=== PATIENT | female | born 2005 | race Two or more races ===

== ENCOUNTER 2024-10-20 15:21 | Emergency (ER) | payer SELFPAY ==
--- NOTE | 2024-10-20 16:03 | PC.NURSE ---
called for pt for vitals and triage process, pt refusing to come back. pt is accompanied by significant other and mother and both are encouraging pt to come back. pt is refusing and wants to leave ER.
--- NOTE | 2024-10-20 16:27 | PC.NURSE ---
ATTEMPTED TO CALL BACK PT. PT NOT FOUND IN OR OUTSIDE OR LOBBY. N/A X1.
--- NOTE | 2024-10-20 16:43 | PC.NURSE ---
ATTEMPTED TO CALL BACK PT. PT NOT FOUND IN OR OUTSIDE OF ED. N/A X2.
--- NOTE | 2024-10-20 18:24 | PC.NURSE ---
PATIENT STILL NOT IN LOBBY. ELOPEMENT AT THIS TIME
== END 2024-10-20 18:24 | disposition left against medical advice (07) ==
LOC: SERX 19:15
PROVIDERS: Emergency Provider Emergency Medicine
DX: Z53.21 Procedure and treatment not carried out due to patient leaving prior to being seen by health care provider (principal)
CPT/HCPCS: 80053; 81001; 85025; 99282

== ENCOUNTER 2024-10-22 16:17 | Emergency (ER) | payer MEDICAID, SELFPAY ==
--- NOTE | 2024-10-22 16:28 | PD.EDPSYCH ---
ED Psych RME/HPI General Chief Complaint: Psychiatric Symptoms Stated Complaint: 5150 HOLD Time Seen by Provider: 10/22/24 16:26 Arrival date/time: 10/22/24 16:17 RME / HPI RME / HPI Narrative: DR. SANCHEZ MAIN ED EVALUATION: 18-year-old female with unknown medical history presents to the Emergency Department [facility] via EMS after reportedly climbing onto a roof, posing a danger to herself and others. She was placed on a psychiatric hold prior to arrival. On arrival, patient is agitated and diaphoretic. No further history available at this time. Related Data Home Medications ?Medication ?Instructions ?Recorded ?Confirmed prenat.vits,gavin,[id number] 1 tab PO QDAY 08/01/21 09/27/21 Allergies Allergy/AdvReac Type Severity Reaction Status Date / Time Penicillins Allergy Rash Verified 10/20/24 15:30 Review of Systems Review of Systems Systems Reviewed: All systems reviewed, normal except as documented Past Medical History Past Medical History CARDIAC: Positive Cardiac Disorders (palpitations) Family History FAMILY HISTORY: Positive Family Respiratory Disorders (Sister (unsure)) Social History SMOKING STATUS: Current some day smoker ED Exam Narrative Physical exam: GENERAL APPEARANCE:? agitated, disheveled, and diaphoretic; alert and oriented, well-developed, well-nourished, seems in no acute distress HEENT: normocephalic, atraumatic NECK: supple LUNGS: no respiratory distress, normal effort HEART: good peripheral perfusion ABDOMEN: non distended EXTREMITIES:? atraumatic NEUROLOGIC: awake; alert and oriented x4; cranial nerves II-XII grossly intact PSYCHIATRIC:? agitated SKIN: warm, dry, normal color; no rashes Course Quality Measures none Orders Category Date Time Status 4 HR Behavioral Restraints Q15M Care 10/23/24 03:00 Completed Diet Regular Diet 10/23/24 Breakfast Active Alcohol, Blood Medical Stat Lab 10/22/24 17:10 Completed Basic Metabolic Panel Stat Lab 10/23/24 07:27 Completed CBC Stat Lab 10/22/24 17:10 Completed CMP [Comprehensive Metabolic Panel] Stat Lab 10/22/24 17:10 Completed Drug Screen,Urine Stat Lab 10/22/24 18:20 Completed HCG Qualitative,Urine Stat Lab 10/22/24 18:20 Completed UA, C/S IF [Urinalysis, C/S if Indicated] Stat Lab 10/22/24 18:20 Completed Diazepam Inj [Valium Inj] Med 10/22/24 23:23 Discontinued 2.5 mg IM X1 ONE Diazepam Inj [Valium Inj] Med 10/22/24 23:26 Discontinued 2.5 mg IM X1 ONE Diazepam Inj [Valium Inj] Med 10/22/24 23:02 Discontinued 2.5 mg IVP X1 ONE Diazepam Inj [Valium Inj] Med 10/22/24 23:05 Discontinued 5 mg IM X1 ONE Diazepam Inj [Valium Inj] Med 10/23/24 09:02 Discontinued 5 mg IM X1 ONE DiphenhydrAMINE INJ [Benadryl Inj] Med 10/22/24 16:26 Discontinued 50 mg IM X1 ONE DiphenhydrAMINE INJ [Benadryl Inj] Med 10/23/24 09:01 Discontinued 50 mg IM X1 ONE DiphenhydrAMINE INJ [Benadryl Inj] Med 10/23/24 16:18 Discontinued 50 mg IM X1 ONE Haloperidol Lactate [Haldol Inj] Med 10/23/24 16:18 Discontinued 10 mg IM X1 ONE Haloperidol Lactate [Haldol Inj] Med 10/22/24 16:26 Discontinued 5 mg IM X1 ONE Haloperidol Lactate [Haldol Inj] Med 10/23/24 02:59 Discontinued 5 mg IM X1 ONE Haloperidol Lactate [Haldol Inj] Med 10/23/24 09:01 Discontinued 5 mg IM X1 ONE Midazolam Inj [Versed Inj] Med 10/23/24 02:59 Discontinued 2.5 mg IVP X1 ONE POTASSIUM CHL 10 mEq IVPB [Kcl Ivpb] Med 10/22/24 23:01 Discontinued 10 meq in 100 ml IV Q1H Potassium Chloride [K-Dur] Med 10/22/24 23:01 Discontinued 40 meq PO X1 ONE Vital Signs Vital signs: Vital Signs Temperature 98.2 F 10/22/24 17:07 Pulse Rate 112 H 10/22/24 17:07 Respiratory Rate 20 10/22/24 17:07 Blood Pressure 120/67 10/22/24 17:07 Pulse Oximetry (%) 97 10/22/24 17:07 Oxygen Delivery Method Room Air 10/22/24 17:07 Psych MDM Narrative MDM Narrative:: IJennifer am scribing for and in the presence of Dr. Tanja. Patient data External records reviewed:: [facility] [place] previous records and EMS form Clinical information provided by:: patient and EMS Social determinants that could affect healthcare access:: none (unknown) Patient has the following chronic illnesses:: Unknown medical history How is presenting disease/condition affected by chronic disease/condition?: no chronic disease Evaluation data The following diagnostics were reviewed and interpreted by me:: lab results Lab and/or radiology exams considered but not ordered:: none Interpretation Summary: Pending at signed out. Medications / Prescriptions Medications or Prescriptions considered but not ordered:: none Medication administrations:: Medication Administration History Discontinued Medications Diazepam (Diazepam Inj 5 Mg/Ml Vial 2 Ml) 2.5 mg IVP X1 ONE Stop: 10/22/24 23:03 Last Admin: 10/22/24 23:27 Dose: Not Given Documented By: CELESTINE Non-Admin Reason: Duplicate Medication on eMAR Diazepam (Diazepam Inj 5 Mg/Ml Vial 2 Ml) 5 mg IM X1 ONE Stop: 10/22/24 23:06 Last Admin: 10/22/24 23:27 Dose: Not Given Documented By: CELESTINE Non-Admin Reason: Duplicate Medication on eMAR Diazepam (Diazepam Inj 5 Mg/Ml Vial 2 Ml) 2.5 mg IM X1 ONE Stop: 10/22/24 23:24 Last Admin: 10/22/24 23:00 Dose: 2.5 mg Documented By: CELESTINE Diazepam (Diazepam Inj 5 Mg/Ml Vial 2 Ml) 2.5 mg IM X1 ONE Stop: 10/22/24 23:27 Last Admin: 10/22/24 23:36 Dose: 2.5 mg Documented By: CELESTINE Diazepam (Diazepam Inj 5 Mg/Ml Vial 2 Ml) 5 mg IM X1 ONE Stop: 10/23/24 09:03 Last Admin: 10/23/24 10:09 Dose: 5 mg Documented By: KAYLA Diphenhydramine HCl (Diphenhydramine Inj 50 Mg/Ml Vial) 50 mg IM X1 ONE Stop: 10/22/24 16:27 Last Admin: 10/22/24 16:44 Dose: 50 mg Documented By: ANATOLIY Diphenhydramine HCl (Diphenhydramine Inj 50 Mg/Ml Vial) 50 mg IM X1 ONE Stop: 10/23/24 09:02 Last Admin: 10/23/24 10:09 Dose: 50 mg Documented By: VG Diphenhydramine HCl (Diphenhydramine Inj 50 Mg/Ml Vial) 50 mg IM X1 ONE Stop: 10/23/24 16:19 Haloperidol Lactate (Haloperidol Lact Inj 5 Mg/Ml Vial) 5 mg IM X1 ONE Stop: 10/22/24 16:27 Last Admin: 10/22/24 16:44 Dose: 5 mg Documented By: ANATOLIY Haloperidol Lactate (Haloperidol Lact Inj 5 Mg/Ml Vial) 5 mg IM X1 ONE Stop: 10/23/24 03:00 Last Admin: 10/23/24 03:26 Dose: 5 mg Documented By: CELESTINE Haloperidol Lactate (Haloperidol Lact Inj 5 Mg/Ml Vial) 5 mg IM X1 ONE Stop: 10/23/24 09:02 Last Admin: 10/23/24 10:08 Dose: 5 mg Documented By: KAYLA Haloperidol Lactate (Haloperidol Lact Inj 5 Mg/Ml Vial) 10 mg IM X1 ONE Stop: 10/23/24 16:19 Potassium Chloride (Kcl Ivpb) 10 meq in 100 mls @ 100 mls/hr IV Q1H MAHOGANY Stop: 10/23/24 03:00 Last Infusion: 10/23/24 05:31 Dose: Infused Documented By: Admin: 10/23/24 04:31 Dose: 100 mls/hr Documented By: Infusion: 10/23/24 04:28 Dose: Infused Documented By: Admin: 10/23/24 02:38 Dose: 100 mls/hr Documented By: Infusion: 10/23/24 02:23 Dose: Infused Documented By: Admin: 10/23/24 01:23 Dose: 100 mls/hr Documented By: Infusion: 10/23/24 01:21 Dose: Infused Documented By: Admin: 10/23/24 00:21 Dose: 100 mls/hr Documented By: CELESTINE Midazolam HCl (Midazolam Inj 1 Mg/Ml Vial 2 Ml) 2.5 mg IVP X1 ONE Stop: 10/23/24 03:00 Last Admin: 10/23/24 03:36 Dose: Not Given Documented By: ZEYAD Non-Admin Reason: Discontinued Potassium Chloride (Potassium Chloride 20 Meq Tabcr) 40 meq PO X1 ONE Stop: 10/22/24 23:02 Last Admin: 10/22/24 23:59 Dose: 40 meq Documented By: CELESTINE see above Consultations Consultation(s) initiated? (list below): No Diagnosis Psych Differential Diagnosis: other (acute psychosis, substance-induced behavioral disturbance, shantal) Most likely diagnosis given after review of the tests above:: see below Admission Indicated Admission indicated?: not indicated Admission Request Was there a request for admission?: No Disposition Plan Disposition Plan: other (specify) (Patient signed out to Dr. Begum, on a 5150 hold, pending labs.) Discharge Plan Prescriptions/Referrals Prescriptions/Med Rec: No Action Vitamin Tablet 1 tab PO QDAY Referrals: No Primary/Family,Physician [Primary Care Provider] - In 1 week Problem List Clinical Impression: Psychosis, Hypokalemia, Combative behavior Patient/Caregiver Discharge Instructions Print Language: Georgian
[2024-10-22] MEDS: HALOPERIDOL LACT INJ 5 MG/ML VIAL IM (16:44)
[2024-10-22 17:07] VITALS: BP 120/67; PULSE 112; RESP 20; TEMP 36.8; O2SAT 97; BMI 21.6
[2024-10-22 17:20] VITALS: PULSE 112
[2024-10-22 17:35] LABS: Basophils # (Auto) 0.0 Thou/mm3 (0.0-0.2); Basophils % (Auto) 0 % (0-2.5); Eosinophils # (Auto) 0.0 Thou/mm3 (0.0-0.5); Eosinophils % (Auto) 0 % (0-10); Hematocrit 37.3 % (36.0-46.0); Hemoglobin 13.2 g/dL (12.0-16.0); Immature Granulocytes Auto 0.05 Thou/mm3 (0.00-0.00); Lymphocytes # (Auto) 2.1 Thou/mm3 (1.0-4.8); Lymphocytes % (Auto) 14 % (10-50); Mean Corpuscular HGB Conc 35.4 g/dl (31.0-37.0); Mean Corpuscular Hemoglobin 30.3 pg (25.0-35.0); Mean Corpuscular Volume 86 fL (80-100); Monocytes # (Auto) 0.7 Thou/mm3 (0.0-0.8); Monocytes % (Auto) 5 % (0-12); Neutrophils # (Auto) 11.7 Thou/mm3 (1.8-7.7); Neutrophils % (Auto) 81 % (37-80); Nucleated Red Blood Cell # 0.00 Thou/mm3 (0.00-0.00); Nucleated Red Blood Cell % 0 /100 WBC (0); Platelet Count 313 Thou/mm3 (140-440); RDW Standard Deviation 37.2 fL (36.4-46.3); Red Blood Count 4.36 Miln/mm3 (4.00-5.20); White Blood Count 14.5 Thou/mm3 (4.5-11.0)
--- NOTE | 2024-10-22 18:09 | PD.EDADDENDU ---
Emergency Room Addendum Addendum Narrative: 1800: Care assumed from Dr. Agrawal, the previous shift emergency physician. Past medical, surgical, social and family history reviewed. Vitals and home medications reviewed. Results and treatment plan discussed. I will assume the care of the patient at this time and will follow the patient, pending 5150, medical clearance. Please refer to the emergency department record for history and examination from initial visit. 18yo female presenting on a 5150 hold after being extremely agitated and posing danger to both self and others requiring physical and chemical restraints. Reports poor recollection on details off event. Denies previous psychiatric diagnoses. Additionally denies SI, HI, or auditory hallucinations. Patient is grieving over brother's in 2020. Medical screening conducted. Patient is currently calm, appropriate, and interactive. Clinical exam demonstrates superficial laceration to the lower aspect of right forearm and left inner thigh. Lab markers including CBC and chemistries are pertinent for Potassium 2.8 (supplemented by PO and IV route), Chloride 108, and normal renal function. Total bilirubin mildly elevated 1.5. UA demonstrates equivocal signs of infection. Tox screen positive benzodiazepines (given upon arrival) and marijuana. Ethanol undetected. Patient currently mildly agitated and is medically clear for psychiatric evaluation. Presentation possibly consistent with acute psychotic episode, for which patient will require psychiatric evaluation. Final diagnosis: acute psychotic episode - resolved, depression, anxiety, substance abuse, hypokalemia. 0600: Care signed out to the oncoming physician. Past medical, surgical, social and family history reviewed. Vitals and home medications reviewed. Results and treatment plan discussed. They will assume the care of the patient at this time and will follow the patient, pending 5150 psychiatric evaluation.
[2024-10-22 18:10] LABS: Alanine Aminotransferase 11 U/L (10-49); Albumin, Serum 4.6 gm/dL (3.5-5.0); Albumin/Globulin Ratio 2.3 (1.2-2.2); Alcohol, Blood Medical < 3.0 mg/dL (0-10.0); Alkaline Phosphatase 62 U/L (46-116); Anion Gap 12 (7-16); Aspartate Amino Transferase 21 U/L (0-34); BUN/Creatinine Ratio 11 Ratio (12-20); Bilirubin,Total 1.5 mg/dL (0.3-1.2); Blood Urea Nitrogen 11 mg/dL (9-23); Calcium 9.3 mg/dL (8.3-10.6); Calcium (Corrected) 9.3 mg/dL (8.5-10.1); Carbon Dioxide 24.7 mMol/L (20.0-31.0); Chloride 108 mMol/L (98-107); Creatinine (Component) 1.0 mg/dL (0.6-1.3); Estimated Creatinine Clearance 77.5 mL/min (>60); Globulin 2.0 gm/dL (2.3-3.5); Glucose 91 mg/dL (74-106); Osmolality,Calculated 288 (275-295); Potassium 2.8 mMol/L (3.4-5.1); Sodium 145 mMol/L (136-145); Total Protein 6.6 gm/dL (5.7-8.2); eGFR > 60 See Note
[2024-10-22 18:40] LABS: Collection Type, Urine Clean Catch
[2024-10-22 18:52] LABS: HCG Qualitative,Urine Negative
[2024-10-22 18:57] LABS: Amorphous Crystals,Urine Present (Absent); Bacteria,Urine Rare; Bilirubin,Urine Negative (Negative); Blood,Urine Negative (Negative); Clarity,Urine Turbid (Clear/Hazy); Color,Urine Yellow (Lt Yel-Yel); Culture Indicated,Urine Not Indicated; Glucose, Urine Negative (Negative); Ketones,Urine Trace (Negative); Leukocyte Esterase,Urine Positive (Negative); Nitrite,Urine Negative (Negative); PH,Urine 6.0 (5.0-7.0); Protein,Urine 1+ (Neg - Trace); RBC,Urine 5 /hpf (0-3); Specific Gravity,Urine 1.035 (1.001-1.035); Squamous Epithelial Cell,Urine 4 /hpf (0-5); Urobilinogen,Urine 3.0 mg/dL (0.0-1.0); WBC,Urine 9 /hpf (0-5)
[2024-10-22 19:11] LABS: Amphetamine/Methamp Scrn,U Negative (Negative); Barbiturate Screen,Urine Negative (Negative); Benzodiazepines Screen,Urine Positive (Negative); Benzoylecgonine Screen, Ur Negative (Negative); Fentanyl Screen,Urine Negative (Negative); Opiate Screen,Urine Negative (Negative); THC Screen,Urine Positive (Negative)
[2024-10-22 19:35] VITALS: BP 145/98; PULSE 91; RESP 16; TEMP 36.9; O2SAT 97
--- NOTE | 2024-10-22 22:27 | PC.NURSE ---
pt awake in room continuously wetting paper towels and wiping down laminated sign in room and wiping spots on floor. pt pushing code button on wall, pt informed to stop doing this. pt stated, ok .
[2024-10-22] MEDS: DIAZEPAM INJ 5 MG/ML VIAL 2 ML 2.5 MG IM ×2 (23:00→23:36)
--- NOTE | 2024-10-22 23:01 | PC.NURSE ---
pt pacing room, continues to push code button on wall when told not to.
--- NOTE | 2024-10-22 23:15 | PC.NURSE ---
frederick goldsmith called. pt walked out of room attempting to leave and not following instructions to return to room. pt assisted back to room by staff. pt placed in restraints.
[2024-10-23] VITALS (7 sets, daily range): BP systolic 106–127; BP diastolic 64–90; PULSE 60–99; RESP 15–19; TEMP 36.4–36.9; O2SAT 98–100
--- NOTE | 2024-10-23 00:06 | PC.NURSE ---
Clarified with Dr. Cate Velazquez of Potassium order-states to give both IV and PO orders, notified Pharmacy of new order
[2024-10-23] MEDS: POTASSIUM CHL 10 mEq IVPB 10 MEQ/100 ML BAG 100 MEQ IV ×4 (00:21→04:31)
--- NOTE | 2024-10-23 00:40 | PC.NURSE ---
bilateral lower extremity soft restraints removed at this time. pt remains calm laying on gurney. sitter outside of room.
[2024-10-23] MEDS: HALOPERIDOL LACT INJ 5 MG/ML VIAL IM ×2 (03:26→10:08)
--- NOTE | 2024-10-23 04:38 | PC.NURSE ---
unable to redirect patient, pt attempting to leave room, while pulling iv while Potassium infusing, for safety of patient and staff notified Provider, new orders from Dr. Begum.
--- NOTE | 2024-10-23 06:31 | PC.NURSE ---
restraints removed, pt follows commands, no distress
--- NOTE | 2024-10-23 06:51 | PD.EDADDENDU ---
Emergency Room Addendum Addendum Narrative: Patient signed out 0600 hrs. for psychosis and bizarre behavior requiring chemical and physical restraints and marijuana presenting the benzos or from our chemical restraint. Patient has been calm this morning at signout time and she has been medically cleared waiting for psychiatric evaluation. Patient is formally 5150. Note she had a low potassium and has been orally repleted and not a clean-catch urine of insignificance Patient had 1 outburst and chemical restraints that worked well and she has been calm as of to the time of this dictation at 1600 hrs. mental health still working on placement and repeat potassium is 4.2. No patient required acute intervention with the code santiago dry me from all my other patients until we got her restrained and reevaluated. Patient been calm since that 1 dose of Haldol this morning because of this there is critical care 45 minutes with multiple reevaluations Patient will be held until placement clearly has some type of psychosis
--- NOTE | 2024-10-23 07:30 | PC.NURSE ---
in to assess pt. pt resting quietly at this time without any complaints. pt is making eye contact and is answering questions. pt is oriented to person, place, and time. 1-1 sitter is at bedside. pt encouraged to let us know if anything is needed.
--- NOTE | 2024-10-23 07:45 | PC.NURSE ---
breakfast tray provided.
[2024-10-23 08:02] LABS: Anion Gap 9 (7-16); BUN/Creatinine Ratio 13 Ratio (12-20); Blood Urea Nitrogen 9 mg/dL (9-23); Calcium 9.1 mg/dL (8.3-10.6); Carbon Dioxide 24.8 mMol/L (20.0-31.0); Chloride 108 mMol/L (98-107); Creatinine (Component) 0.7 mg/dL (0.6-1.3); Estimated Creatinine Clearance 110.7 mL/min (>60); Glucose 78 mg/dL (74-106); Osmolality,Calculated 280 (275-295); Potassium 4.2 mMol/L (3.4-5.1); Sodium 142 mMol/L (136-145); eGFR > 60 See Note
--- NOTE | 2024-10-23 08:39 | PD.EDADDENDU ---
Emergency Room Addendum <Jennifer Dacosta - Last Filed: 10/23/24 16:16> Addendum Narrative: 0600: Care assumed from Dr. Dr. Meraz, the previous shift emergency physician. Past medical, surgical, social and family history reviewed. Vitals and home medications reviewed. I will assume the care of the patient at this time, pending 5150 psychiatric evaluation and final disposition. Please refer to the emergency department record for history and examination from initial visit.? Physical exam by me shows patient under no acute distress at this time. 0856: Levon santiago was called, patient combative. 18-year-old female BIBA on 5150 hold for extreme agitation and danger to self/others, requiring physical and chemical restraints. Medically cleared for psychiatric evaluation. Patient had bizarre behavior. Labs showed marijuana use only. Patient needed chemical restraint. 1615: Levon santiago was called, patient combative. <Ba Rankin MD - Last Filed: 10/23/24 16:56> Addendum Narrative: 0600: Care assumed from Dr. Dr. Meraz, the previous shift emergency physician. Past medical, surgical, social and family history reviewed. Vitals and home medications reviewed. I will assume the care of the patient at this time, pending 5150 psychiatric evaluation and final disposition. Please refer to the emergency department record for history and examination from initial visit.? Physical exam by me shows patient under no acute distress at this time. 0856: Levon santiago was called, patient combative. 18-year-old female BIBA on 5150 hold for extreme agitation and danger to self/others, requiring physical and chemical restraints. Medically cleared for psychiatric evaluation. Patient had bizarre behavior. Labs showed marijuana use only. Patient needed chemical restraint. 1615: Levon santiago was called, patient combative. Again patient is agitated blank stare getting off the gurney pushing the call light pushing the CODE BLUE light she will need further sedation. Also the 5 mg Haldol gave earlier was adequate but did not last very long we will increase the dose to 10. Care goes to the oncoming doctor at 1700 hrs. Results <Jennifer Dacosta - Last Filed: 10/23/24 16:16> Objective Laboratory: Laboratory Last Values WBC 14.5 Thou/mm3 (4.5-11.0) H 10/22/24 17:10 RBC 4.36 Miln/mm3 (4.00-5.20) 10/22/24 17:10 Hgb 13.2 g/dL (12.0-16.0) 10/22/24 17:10 Hct 37.3 % (36.0-46.0) 10/22/24 17:10 MCV 86 fL (80-100) 10/22/24 17:10 MCH 30.3 pg (25.0-35.0) 10/22/24 17:10 MCHC 35.4 g/dl (31.0-37.0) 10/22/24 17:10 RDW Std Deviation 37.2 fL (36.4-46.3) 10/22/24 17:10 Plt Count 313 Thou/mm3 (140-440) 10/22/24 17:10 Neut % (Auto) 81 % (37-80) H 10/22/24 17:10 Lymph % (Auto) 14 % (10-50) 10/22/24 17:10 [place] % (Auto) 5 % (0-12) 10/22/24 17:10 Eos % (Auto) 0 % (0-10) 10/22/24 17:10 Baso % (Auto) 0 % (0-2.5) 10/22/24 17:10 Neut # (Auto) 11.7 Thou/mm3 (1.8-7.7) H 10/22/24 17:10 Lymph # (Auto) 2.1 Thou/mm3 (1.0-4.8) 10/22/24 17:10 [place] # (Auto) 0.7 Thou/mm3 (0.0-0.8) 10/22/24 17:10 Eos # (Auto) 0.0 Thou/mm3 (0.0-0.5) 10/22/24 17:10 Baso # (Auto) 0.0 Thou/mm3 (0.0-0.2) 10/22/24 17:10 Immature Gran # (Auto) 0.05 Thou/mm3 (0.00-0.00) H 10/22/24 17:10 Absolute Nucleated RBC 0.00 Thou/mm3 (0.00-0.00) 10/22/24 17:10 Immature Gran % 0 % (0-0) 10/22/24 17:10 Nucleated RBC % 0 /100 WBC (0) 10/22/24 17:10 Sodium 142 mMol/L (136-145) 10/23/24 07:27 Potassium 4.2 mMol/L (3.4-5.1) D 10/23/24 07:27 Chloride 108 mMol/L (98-107) H 10/23/24 07:27 Carbon Dioxide 24.8 mMol/L (20.0-31.0) 10/23/24 07:27 Anion Gap 9 (7-16) 10/23/24 07:27 BUN 9 mg/dL (9-23) 10/23/24 07:27 Creatinine 0.7 mg/dL (0.6-1.3) 10/23/24 07:27 Estim Creat Clear Calc 110.7 mL/min (>60) 10/23/24 07:27 eGFR > 60 See Note (60-) 10/23/24 07:27 BUN/Creatinine Ratio 13 Ratio (12-20) 10/23/24 07:27 Glucose 78 mg/dL (74-106) 10/23/24 07:27 Calculated Osmolality 280 (275-295) 10/23/24 07:27 Calcium 9.1 mg/dL (8.3-10.6) 10/23/24 07:27 Corrected Calcium 9.3 mg/dL (8.5-10.1) 10/22/24 17:10 Total Bilirubin 1.5 mg/dL (0.3-1.2) H 10/22/24 17:10 AST 21 U/L (0-34) 10/22/24 17:10 ALT 11 U/L (10-49) 10/22/24 17:10 Alkaline Phosphatase 62 U/L (46-116) 10/22/24 17:10 Total Protein 6.6 gm/dL (5.7-8.2) 10/22/24 17:10 Albumin 4.6 gm/dL (3.5-5.0) 10/22/24 17:10 Globulin 2.0 gm/dL (2.3-3.5) L 10/22/24 17:10 Albumin/Globulin Ratio 2.3 (1.2-2.2) H 10/22/24 17:10 Ur Collection Type Clean Catch 10/22/24 18:20 Urine Color Yellow (Lt Yel-Yel) 10/22/24 18:20 Urine Clarity Turbid (Clear/Hazy) A 10/22/24 18:20 Urine pH 6.0 (5.0-7.0) 10/22/24 18:20 Ur Specific [place] 1.035 (1.001-1.035) 10/22/24 18:20 Urine Protein 1+ (Neg - Trace) A 10/22/24 18:20 Urine Glucose (UA) Negative (Negative) 10/22/24 18:20 Urine Ketones Trace (Negative) 10/22/24 18:20 Urine Blood Negative (Negative) 10/22/24 18:20 Urine Nitrite Negative (Negative) 10/22/24 18:20 Urine Bilirubin Negative (Negative) 10/22/24 18:20 Urine Urobilinogen (Auto) 3.0 mg/dL (0.0-1.0) 10/22/24 18:20 Ur Leukocyte Esterase Positive (Negative) 10/22/24 18:20 Urine RBC 5 /hpf (0-3) H 10/22/24 18:20 Urine WBC 9 /hpf (0-5) H 10/22/24 18:20 Ur Squamous Epith Cells 4 /hpf (0-5) 10/22/24 18:20 Amorphous Crystals Present (Absent) A 10/22/24 18:20 Urine Bacteria Rare (None) 10/22/24 18:20 Ur Culture Indicated? Not Indicated 10/22/24 18:20 Urine HCG, Qual Negative 10/22/24 18:20 Urine Opiates Screen Negative (Negative) 10/22/24 18:20 Urine Fentanyl Screen Negative (Negative) 10/22/24 18:20 Ur Barbiturates Screen Negative (Negative) 10/22/24 18:20 U Amphetamin/Meth Scrn Negative (Negative) 10/22/24 18:20 U Benzodiazepines Scrn Positive (Negative) A 10/22/24 18:20 U Cocaine Metab Screen Negative (Negative) 10/22/24 18:20 U Marijuana (THC) Screen Positive (Negative) A 10/22/24 18:20 Ethyl Alcohol < 3.0 mg/dL (0-10.0) 10/22/24 17:10 <Ba Rankin MD - Last Filed: 10/23/24 16:56> Objective Laboratory: Laboratory Last Values WBC 14.5 Thou/mm3 (4.5-11.0) H 10/22/24 17:10 RBC 4.36 Miln/mm3 (4.00-5.20) 10/22/24 17:10 Hgb 13.2 g/dL (12.0-16.0) 10/22/24 17:10 Hct 37.3 % (36.0-46.0) 10/22/24 17:10 MCV 86 fL (80-100) 10/22/24 17:10 MCH 30.3 pg (25.0-35.0) 10/22/24 17:10 MCHC 35.4 g/dl (31.0-37.0) 10/22/24 17:10 RDW Std Deviation 37.2 fL (36.4-46.3) 10/22/24 17:10 Plt Count 313 Thou/mm3 (140-440) 10/22/24 17:10 Neut % (Auto) 81 % (37-80) H 10/22/24 17:10 Lymph % (Auto) 14 % (10-50) 10/22/24 17:10 [place] % (Auto) 5 % (0-12) 10/22/24 17:10 Eos % (Auto) 0 % (0-10) 10/22/24 17:10 Baso % (Auto) 0 % (0-2.5) 10/22/24 17:10 Neut # (Auto) 11.7 Thou/mm3 (1.8-7.7) H 10/22/24 17:10 Lymph # (Auto) 2.1 Thou/mm3 (1.0-4.8) 10/22/24 17:10 [place] # (Auto) 0.7 Thou/mm3 (0.0-0.8) 10/22/24 17:10 Eos # (Auto) 0.0 Thou/mm3 (0.0-0.5) 10/22/24 17:10 Baso # (Auto) 0.0 Thou/mm3 (0.0-0.2) 10/22/24 17:10 Immature Gran # (Auto) 0.05 Thou/mm3 (0.00-0.00) H 10/22/24 17:10 Absolute Nucleated RBC 0.00 Thou/mm3 (0.00-0.00) 10/22/24 17:10 Immature Gran % 0 % (0-0) 10/22/24 17:10 Nucleated RBC % 0 /100 WBC (0) 10/22/24 17:10 Sodium 142 mMol/L (136-145) 10/23/24 07:27 Potassium 4.2 mMol/L (3.4-5.1) D 10/23/24 07:27 Chloride 108 mMol/L (98-107) H 10/23/24 07:27 Carbon Dioxide 24.8 mMol/L (20.0-31.0) 10/23/24 07:27 Anion Gap 9 (7-16) 10/23/24 07:27 BUN 9 mg/dL (9-23) 10/23/24 07:27 Creatinine 0.7 mg/dL (0.6-1.3) 10/23/24 07:27 Estim Creat Clear Calc 110.7 mL/min (>60) 10/23/24 07:27 eGFR > 60 See Note (60-) 10/23/24 07:27 BUN/Creatinine Ratio 13 Ratio (12-20) 10/23/24 07:27 Glucose 78 mg/dL (74-106) 10/23/24 07:27 Calculated Osmolality 280 (275-295) 10/23/24 07:27 Calcium 9.1 mg/dL (8.3-10.6) 10/23/24 07:27 Corrected Calcium 9.3 mg/dL (8.5-10.1) 10/22/24 17:10 Total Bilirubin 1.5 mg/dL (0.3-1.2) H 10/22/24 17:10 AST 21 U/L (0-34) 10/22/24 17:10 ALT 11 U/L (10-49) 10/22/24 17:10 Alkaline Phosphatase 62 U/L (46-116) 10/22/24 17:10 Total Protein 6.6 gm/dL (5.7-8.2) 10/22/24 17:10 Albumin 4.6 gm/dL (3.5-5.0) 10/22/24 17:10 Globulin 2.0 gm/dL (2.3-3.5) L 10/22/24 17:10 Albumin/Globulin Ratio 2.3 (1.2-2.2) H 10/22/24 17:10 Ur Collection Type Clean Catch 10/22/24 18:20 Urine Color Yellow (Lt Yel-Yel) 10/22/24 18:20 Urine Clarity Turbid (Clear/Hazy) A 10/22/24 18:20 Urine pH 6.0 (5.0-7.0) 10/22/24 18:20 Ur Specific [place] 1.035 (1.001-1.035) 10/22/24 18:20 Urine Protein 1+ (Neg - Trace) A 10/22/24 18:20 Urine Glucose (UA) Negative (Negative) 10/22/24 18:20 Urine Ketones Trace (Negative) 10/22/24 18:20 Urine Blood Negative (Negative) 10/22/24 18:20 Urine Nitrite Negative (Negative) 10/22/24 18:20 Urine Bilirubin Negative (Negative) 10/22/24 18:20 Urine Urobilinogen (Auto) 3.0 mg/dL (0.0-1.0) 10/22/24 18:20 Ur Leukocyte Esterase Positive (Negative) 10/22/24 18:20 Urine RBC 5 /hpf (0-3) H 10/22/24 18:20 Urine WBC 9 /hpf (0-5) H 10/22/24 18:20 Ur Squamous Epith Cells 4 /hpf (0-5) 10/22/24 18:20 Amorphous Crystals Present (Absent) A 10/22/24 18:20 Urine Bacteria Rare (None) 10/22/24 18:20 Ur Culture Indicated? Not Indicated 10/22/24 18:20 Urine HCG, Qual Negative 10/22/24 18:20 Urine Opiates Screen Negative (Negative) 10/22/24 18:20 Urine Fentanyl Screen Negative (Negative) 10/22/24 18:20 Ur Barbiturates Screen Negative (Negative) 10/22/24 18:20 U Amphetamin/Meth Scrn Negative (Negative) 10/22/24 18:20 U Benzodiazepines Scrn Positive (Negative) A 10/22/24 18:20 U Cocaine Metab Screen Negative (Negative) 10/22/24 18:20 U Marijuana (THC) Screen Positive (Negative) A 10/22/24 18:20 Ethyl Alcohol < 3.0 mg/dL (0-10.0) 10/22/24 17:10 Critical Care Time <Jennifer Dacosta - Last Filed: 10/23/24 16:16> Critical Care Time Critical Care Time: Yes Total Critical Care Time (min.): 45 Attestation: For chemically restrained The high probability of sudden, clinically significant deterioration in the patient?s condition required the highest level of my preparedness to intervene urgently. The services I provided to this patient were to treat and/or prevent clinically significant deterioration. Services included the following: chart data review, reviewing nursing notes and/or old charts, documentation time, organization development consultant collaboration regarding findings and treatment options, medication orders and management, direct patient care, vital sign assessments and ordering, interpreting and reviewing diagnostic studies and lab tests. Aggregate critical care time includes only time during which I was engaged in work directly related to the patient?s care, as described above, whether at bedside or elsewhere in the Emergency Department. It did not include time spent performing other reported procedures or the services of residents, students, nurses or physician assistants.
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
[2024-10-23] MEDS: DIAZEPAM INJ 5 MG/ML VIAL 2 ML IM ×2 (10:09→23:38)
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
--- NOTE | 2024-10-23 11:00 | PC.NURSE ---
pt ambulating to the restroom, accompanied by GLASS PRODUCTS INSPECTOR.
--- NOTE | 2024-10-23 12:42 | PC.CC ---
Contacted ED registration in efforts to have Pt facesheet updated. Digital Forensics Investigator waiting for facesheet to be updated.
--- NOTE | 2024-10-23 13:00 | PC.NURSE ---
lunch tray provided. pt eating her lunch independently.
--- NOTE | 2024-10-23 13:00 | PC.NURSE ---
pt ambulating to the restroom, accompanied by NOVELTY MAKER. pt tolerated well.
--- NOTE | 2024-10-23 14:25 | PC.CC ---
Received telephone call from [facility] requesting to speak with bedside nurse 1:46PM Received telephone call from [facility] requesting to speak to bedside nurse 2:22PM
--- NOTE | 2024-10-23 15:30 | PC.NURSE ---
pt given markers and paper for distraction. pt writing noted on paper to family members.
--- NOTE | 2024-10-23 16:26 | PC.CC ---
Die Casting Machine Setter updated Pt 5150 placement packet and resubmitted packet to all adult accepting LPS facilitates via [employer] and [facility] Fax.
--- NOTE | 2024-10-23 16:57 | EDNOTE_ITS ---
Emergency Room Addendum Addendum Narrative: 1700: Care assumed from Dr. Rankin, the previous shift emergency physician. Past medical, surgical, social and family history reviewed. Vitals and home medications reviewed. I will assume the care of the patient at this time, pending psychiatric placement. Please refer to the emergency department record for history and examination from initial visit.? Physical exam by me shows patient under no acute distress at this time. Patient is able to walk and family brought her food and ate without any problems. Patient is completely functional and no complaints. 1810: manager administrative services working on placing the patient to a psychiatric facility. 0600: Patient signed out to morning doctor, pending psychiatric placement.
[2024-10-23] MEDS: HALOPERIDOL LACT INJ 5 MG/ML VIAL 10 MG IM (17:01)
--- NOTE | 2024-10-23 18:12 | PC.CC ---
Manager Print contacted Leo Lopez, Endy JEROME, Laurie JEROME, [facility], [facility], and [facility] - Pt is in need of note stating Pt is able to eat and ambulate in order to receive acceptance. Write spoke to attending nurse and doctor and note will be added and placement packet will be updated and sent out to all adult accepting facilities.
--- NOTE | 2024-10-23 18:49 | PC.CC ---
Addendum entered by Vera Palma 10/23/24 19:05: [facility] denied due to high acuity- unable to accommodate behaviors. Original Note: Air Purifier Servicer sent out updated placement packet to all [facility] adult accepting facilities.
[2024-10-24 00:05] VITALS: BP 128/85; PULSE 82; RESP 16; TEMP 36.7; O2SAT 99
[2024-10-24] MEDS: HALOPERIDOL LACT INJ 5 MG/ML VIAL IM (01:20)
--- NOTE | 2024-10-24 01:28 | PC.NURSE ---
At 2330 pt was given pt valium . spit it out.
[2024-10-24 05:23] VITALS: BP 125/88; PULSE 90; RESP 16; TEMP 37.1; O2SAT 98
--- NOTE | 2024-10-24 05:24 | PC.NURSE ---
at 0515 pt noted to have tougne sticking out and arms stretched out tight. pt received haldol earlier. pt having distonic reaction. MD aware and med ordered and given.
--- NOTE | 2024-10-24 05:24 | PC.NURSE ---
assisted rn with complete linen change as pt soiled herself.
--- NOTE | 2024-10-24 07:15 | PC.NURSE ---
PT CURRENTLY SLEEPING. PER REPORT, PT HAS BEEN UNCOOPERATIVE AND COMBATIVE NEEDING HALDOL LAST NIGHT AND RESTRAINTS. WILL NOT WAKE PT AT THIS TIME FOR VITAL SIGNS OR ASSESSMENT. WILL ATTEMPT ASSESSMENT WHEN PT AWAKE. SITTER REMAINS AT BEDSIDE
--- NOTE | 2024-10-24 07:43 | PC.NURSE ---
CALL RECEIVED FROM PEDRO AT [facility]. REPORT GIVEN THEN CALL TRANSFERRED BACK TO CHEMISTRY TECHNICAL OFFICER
--- NOTE | 2024-10-24 09:03 | PC.NURSE ---
PT SEEN WALKING TO AND FROM BATHROOM WITH SITTER AND WAS BACK ASLEEP BEFORE NURSE COULD GET IN ROOM TO ASSESS. PER SITTER PT DID NOT TALK WHILE WALKING TO AND FROM THE BATHROOM
--- NOTE | 2024-10-24 09:25 | PC.NURSE ---
WENT TO TRY AND TALK WITH PT AND PT WOULD NOT ANSWER ANY QUESTIONS AT THIS TIME. CHECKED IV TO RIGHT ARM AND NOTED MULTIPLE CUT SCARS ON RIGHT ARM
--- NOTE | 2024-10-24 09:30 | PC.CC ---
09:26-Hollie [facility] reports that they do not have any adult female beds and she is at the top of the queue. 09:21-[facility] psychiatry, Choco reports the patient is in the queue but there are no female beds for today. 0915-[facility] no beds available, but requested referral be resent to [phone]. Referral was re-sent via [facility] Fax. 09-[facility] no answer message left. 0907-[facility] reports that they do not have open beds this morning, they might have some discharges today and patient will be kept in the queue. 0906-Ron with [facility] reports they do not have any open beds as they are waiting for discharges to happen. 09-Iraida with [facility] reports that they would like an update on her within the next hours.
--- NOTE | 2024-10-24 10:14 | PD.EDADDENDU ---
Emergency Room Addendum Addendum Narrative: 0600: Care assumed from Dr. Begum, the previous shift emergency physician. Past medical, surgical, social and family history reviewed. Vitals and home medications reviewed. I will assume the care of the patient at this time, pending LPS facility placement. Please refer to the emergency department record for history and examination from initial visit.?The following addendum documentation note is intended to reflect any pending information, findings, or radiology results not included in the patient?s initial chart. 1030: Patient has been accepted for transfer by Dr. Young at [facility].
--- NOTE | 2024-10-24 10:25 | PC.CC ---
Addendum entered by Tri De La Cruz 10/24/24 10:30: Iraida reports they changed unit from F to E New nurse to Nurse [phone] Original Note: [address] [place], [place] [address]Iraida provided accepting information Unit F, Dr. Young, Nurse to Nurse [phone].
--- NOTE | 2024-10-24 10:46 | PC.NURSE ---
PER ROTARY DUMP OPERATOR PT ACCEPTED TO [facility]
--- NOTE | 2024-10-24 10:53 | PC.NURSE ---
ATTEMPTED TO CALL REPORT TO [facility] AT [phone] AND NO ANSWER
--- NOTE | 2024-10-24 10:59 | PC.CC ---
INSURANCE CHECKERTri attempted to provide accepting facility to the patient; however, patient would not engage. INSURANCE CHECKER, attempted to make telephone contact with patient mother, Irlanda but not answer left voicemail for call back.
[2024-10-24 11:01] VITALS: BP 136/92; PULSE 96; RESP 16; TEMP 36.1; O2SAT 100
== END 2024-10-24 12:55 ==
PROVIDERS: Emergency Medicine; Emergency Provider Emergency Medicine
DX: F29 Unspecified psychosis not due to a substance or known physiological condition (principal); E87.6 Hypokalemia; Z78.1 Physical restraint status; Z75.1 Person awaiting admission to adequate facility elsewhere
CPT/HCPCS: 36415; 80048; 80053; 80307; 80320; 81001; 81025; 85025; 96127; 96365; 96366; 96372; 99283; J1200; J1630; J3360; J3480; A9270; G0480

== ENCOUNTER 2024-11-18 03:35 | Emergency (ER) | payer MEDICAID, SELFPAY ==
[2024-11-18 03:53] VITALS: PULSE 140; RESP 20; O2SAT 99; BMI 22.6
[2024-11-18 04:00] VITALS: BP 128/94; PULSE 108; RESP 16; TEMP 37.1; O2SAT 98
--- NOTE | 2024-11-18 04:00 | PC.NURSE ---
PT BROUGHT INTO ER BY AMBULANCE FOR 5150. PER PD REPORT PT WISHED SHE WAS , TALKING ABOUT BROTHER AND NOT ACTING NORMAL. PT RECENTLY RELEASED FROM [facility]. PT PLACED IN ROOM AND IN GOWN. PT DENIES WANTING TO HARM HERSELF OR OTHERS. PT DENIES HEARING VOICES OR SEEING THINGS. PT STATES SHE IS TAKING HER MEDICATIONS SINCE RELEASED FROM FACILITY. PT WANDED BY SECURITY. SITTER AT BEDSIDE.
--- NOTE | 2024-11-18 04:39 | PC.NURSE ---
WE HAD DOWN TIME FROM [phone].
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
[2024-11-18 05:04] LABS: Basophils # (Auto) 0.1 Thou/mm3 (0.0-0.2); Basophils % (Auto) 0 % (0-2.5); Eosinophils # (Auto) 0.0 Thou/mm3 (0.0-0.5); Eosinophils % (Auto) 0 % (0-10); Hematocrit 41.9 % (36.0-46.0); Hemoglobin 13.8 g/dL (12.0-16.0); Immature Granulocytes Auto 0.10 Thou/mm3 (0.00-0.00); Lymphocytes # (Auto) 2.0 Thou/mm3 (1.0-4.8); Lymphocytes % (Auto) 16 % (10-50); Mean Corpuscular HGB Conc 32.9 g/dl (31.0-37.0); Mean Corpuscular Hemoglobin 30.3 pg (25.0-35.0); Mean Corpuscular Volume 92 fL (80-100); Monocytes # (Auto) 1.0 Thou/mm3 (0.0-0.8); Monocytes % (Auto) 8 % (0-12); Neutrophils # (Auto) 9.1 Thou/mm3 (1.8-7.7); Neutrophils % (Auto) 74 % (37-80); Nucleated Red Blood Cell # 0.00 Thou/mm3 (0.00-0.00); Nucleated Red Blood Cell % 0 /100 WBC (0); Platelet Count 478 Thou/mm3 (140-440); RDW Standard Deviation 44.1 fL (36.4-46.3); Red Blood Count 4.56 Miln/mm3 (4.00-5.20); White Blood Count 12.4 Thou/mm3 (3.6-11.0)
[2024-11-18 05:27] LABS: Acetaminophen < 2.0 mcg/mL (10.0-20.0); Alanine Aminotransferase 14 U/L (10-49); Albumin, Serum 4.6 gm/dL (3.5-5.0); Albumin/Globulin Ratio 1.9 (1.2-2.2); Alkaline Phosphatase 76 U/L (46-116); Anion Gap 11 (7-16); Aspartate Amino Transferase 14 U/L (0-34); BUN/Creatinine Ratio 16 Ratio (12-20); Bilirubin,Total 0.4 mg/dL (0.3-1.2); Blood Urea Nitrogen 13 mg/dL (9-23); Calcium 9.9 mg/dL (8.3-10.6); Calcium (Corrected) 9.9 mg/dL (8.5-10.1); Carbon Dioxide 25.1 mMol/L (20.0-31.0); Chloride 108 mMol/L (98-107); Creatinine (Component) 0.8 mg/dL (0.6-1.3); Estimated Creatinine Clearance 96.1 mL/min (>60); Globulin 2.4 gm/dL (2.3-3.5); Glucose 105 mg/dL (74-106); Magnesium 1.8 mg/dL (1.6-2.6); Osmolality,Calculated 286 (275-295); Potassium 4.3 mMol/L (3.4-5.1); Salicylate < 3.0 mg/dL; Sodium 144 mMol/L (136-145); Thyroid Stimulating Hormone 2.82 uIU/mL (0.55-4.78); Total Protein 7.0 gm/dL (5.7-8.2); eGFR > 60 See Note
[2024-11-18 06:05] LABS: HCG Qualitative,Urine Negative
[2024-11-18 06:23] LABS: Alcohol, Urine Negative (Negative); Amphetamine/Methamp Scrn,U Negative (Negative); Barbiturate Screen,Urine Negative (Negative); Benzodiazepines Screen,Urine Negative (Negative); Benzoylecgonine Screen, Ur Negative (Negative); Fentanyl Screen,Urine Negative (Negative); Opiate Screen,Urine Negative (Negative); THC Screen,Urine Positive (Negative)
[2024-11-18 08:47] VITALS: BP 130/83; PULSE 125; RESP 20; TEMP 36.7; O2SAT 97
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
--- NOTE | 2024-11-18 10:37 | PD.EDADDENDU ---
Emergency Room Addendum Addendum Narrative: 0600: Care assumed from Dr. Deal, the previous shift emergency physician. Past medical, surgical, social and family history reviewed. Vitals and home medications reviewed. I will assume the care of the patient at this time, pending mental health evaluation. Please refer to the emergency department record for history and examination from initial visit.?The following addendum documentation note is intended to reflect any pending information, findings, or radiology results not included in the patient?s initial chart. Patient has been accepted for transfer by Dr. Capps at [facility]. EMS p/u ETA 14:00h.
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
[2024-11-18 10:56] VITALS: BP 132/80; PULSE 114; RESP 18; O2SAT 99
[2024-11-18 13:48] VITALS: BP 148/104; PULSE 123; RESP 18; TEMP 37.2; O2SAT 99
--- NOTE | 2024-11-18 13:54 | PC.NURSE ---
[facility] PICKED PT UP FOR TRANSPORT TO [facility]. PT ON GURNEY ACCOMPANIED BY 2 EMS.
--- NOTE | 2024-11-18 13:58 | PC.NURSE ---
REPORT CALLED TO DENNIS AT [facility].
== END 2024-11-18 13:55 ==
LOC: SERX 08:05
PROVIDERS: Emergency Provider Family Medicine
DX: F22 Delusional disorders (principal)
CPT/HCPCS: 36415; 80053; 80307; 80320; 80329; 81025; 83735; 84443; 85025; 96127; 99283; G0480